=== PATIENT | female | born 1965 | race Caucasian/White ===

== ENCOUNTER 2017-10-25 14:18 | Emergency (ER) | payer MEDICARE, MEDICAID ==
[2017-10-25] MEDS ORDERED: Dexamethasone 4 mg/ml Vial ONE (16:30)
[2017-10-25] MEDS ORDERED: Albuterol Sulfate 2.5 mg/0.5 ml Neb ONE (16:33)
[2017-10-25] MEDS ORDERED: Albuterol Sulfate 2.5 mg/3 ml Neb ONE (16:34)
== END 2017-10-25 16:57 | disposition home or self-care (01) ==
LOC: ERS 14:18
DX: J20.9 Acute bronchitis, unspecified (principal); M41.9 Scoliosis, unspecified; Z79.899 Other long term (current) drug therapy
CPT/HCPCS: 94640; J1100; J7611

== ENCOUNTER 2018-04-02 16:01 | Emergency (ER) | payer MEDICARE, MEDICAID ==
[2018-04-02 16:38] LABS: Bilirubin Negative (Negative); Blood, Urine Moderate (Negative); Clarity CLEAR (Clear); Glucose, Urine (Dipstick) Negative (Negative); Leukocyte Small (Negative); Nitrite Negative (Negative); Protein, Urine (Dipstick) Negative (Neg-Trace); Specific Gravity, Urine 1.012 (1.002-1.036)
[2018-04-02 16:40] LABS: Bacteria/HPF Rare-Few HPF (None Seen); Hyaline Casts/LPF 0-3 HYALINE CAST LPF (0-3 Hyaline); Pathc Cast-AUWi Flag 0.14 (0-2.49); Squamous Epithelial None Seen HPF (0-3); WBC/HPF 21-50 HPF (0-3)
[2018-04-02] MEDS ORDERED: Ketorolac Tromethamine 60 MG/2 ML VIAL ONE (17:02)
[2018-04-04 21:54] LABS: Chlamydia by PCR DETECTED (NotDetected); GC by PCR Not Detected (NotDetected)
== END 2018-04-02 17:46 | disposition home or self-care (01) ==
LOC: ERS 16:01
DX: N39.0 Urinary tract infection, site not specified (principal); I10 Essential (primary) hypertension; D49.6 Neoplasm of unspecified behavior of brain; D49.2 Neoplasm of unspecified behavior of bone, soft tissue, and skin; M41.9 Scoliosis, unspecified
CPT/HCPCS: 81003; 81015; 87077; 87086; 87186; 87480; 87491; 87510; 87591; 87660; 93005; 96372; J1885

== ENCOUNTER 2018-09-20 08:18 | Emergency (ER) | payer MEDICARE, MEDICAID ==
--- NOTE | 2018-09-20 09:03 | RAD ---
LEFT ELBOW FOUR VIEWS: History: Left elbow pain. Prior surgery. Comparison: 07-23-14 FINDINGS: Extensive internal orthopedic fixation of the distal humerus and the ulna is again demonstrated, blas lar to the 07-23-14 exam. No perihardware lucency is evident. No acute fracture or dislocation. No flu id distention joint capsule is apparent. IMPRESSION: Stable post-operative changes of the left elbow. No acute osseous abnormalities are demonstrated. POS: ANDREW
== END 2018-09-20 09:14 | disposition home or self-care (01) ==
LOC: ERS 08:18
DX: S46.912A Strain of unspecified muscle, fascia and tendon at shoulder and upper arm level, left arm, initial encounter (principal); I10 Essential (primary) hypertension; Z79.899 Other long term (current) drug therapy; X58.XXXA Exposure to other specified factors, initial encounter

== ENCOUNTER 2019-10-24 17:55 | Emergency (ER) | payer MEDICARE, MEDICAID ==
[2019-10-24] MEDS ORDERED: Ketorolac Tromethamine 30 MG/ML VIAL ONE (18:11)
[2019-10-24 18:31] LABS: Bilirubin Negative (Negative); Blood, Urine 1+ (Negative); Clarity Clear (Clear); Glucose, Urine (Dipstick) Normal (Negative); Leukocyte Negative Leu/uL (Negative); Nitrite Negative (Negative); Protein, Urine (Dipstick) 70 mg/dL (Neg-Trace); RBC/HPF 0-3 HPF (0-3); Urobilinogen Normal mg/dL (Less than 2)
[2019-10-24 18:35] LABS: #Eosinphils 0.1 thou/uL (0.0-0.7); #Lymphocytes 1.9 thou/uL (1.20-3.40); #Monocytes 0.4 thou/uL (0.11-0.59); #Neutrophils 3.6 thou/uL (1.40-6.50); %Basophils 0.3 % (0.0-1.0); %Eosinophils 2.5 % (0.0-10.0); %Lymphocytes 30.6 % (21.0-51.0); %Monocytes 6.7 % (0.0-10.0); %Neutrophils 59.9 % (42.0-75.0); Hemoglobin 12.3 g/dL (12.0-16.0); Mean Corpuscular HGB CONC 33.6 g/dL (32.0-36.0); Mean Corpuscular Hemoglobin 29.9 pg (27.0-31.0); Mean Corpuscular Volume 88.9 fL (78.0-98.0); Platelet Count 224 thou/uL (130-400); RBC Distribution Width 12.7 % (11.5-14.5); Red Blood Cell (RBC) Count 4.12 mill/uL (4.20-5.40); White Blood Cell (WBC) Count 6.1 thou/uL (4.8-10.8)
[2019-10-24 18:36] LABS: Bacteria/HPF 1+ HPF (None Seen)
[2019-10-24 18:58] LABS: ALT (SGPT) 15 U/L (8-55); AST (SGOT) 27 U/L (5-34); Albumin 3.8 g/dL (3.5-5.0); Alkaline Phosphatase 92 U/L (40-110); Anion Gap 14 mmol/L (10-20); BUN (Urea Nitrogen) 16 mg/dL (9.8-20.1); Bilirubin, Total 0.3 mg/dL (0.2-1.2); Calc. Creatinine Clearance 0 mL/min (70-130); Calcium 8.8 mg/dL (7.8-10.44); Carbon Dioxide 24 mmol/L (22-29); Chloride 111 mmol/L (98-107); Estimated GFR-MDRD 71; Globulin 3.4 g/dL (2.4-3.5); Glucose 102 mg/dL (70-105); Potassium 4.5 mmol/L (3.5-5.1); Protein, Total 7.2 g/dL (6.0-8.3); Sodium 144 mmol/L (136-145)
--- NOTE | 2019-10-24 19:17 | CT ---
CT OF ABDOMEN AND PELVIS PERFORMED WITHOUT CONTRAST ENHANCEMENT: 10/24/19 HISTORY: Left flank pain. The lung bases are clear. The liver, spleen, and pancreas regions appear unremarkable. The gallbladder has been removed. Right and left adrenal glands and right and left kidneys are normal in size. Punctate nonobstructing lower pole renal calculus is seen. No ureteral calculi are seen. No bladder calculus noted. There ar e phleboliths within the pelvis but no definite distal ureteral calculi. There is no significant per iaortic or mesenteric adenopathy. There are slightly numerous aortocaval nodes but these are not sign ificantly enlarged. CT OF PELVIS PERFORMED WITHOUT CONTRAST ENHANCEMENT: No adenopathy or mass. No free fluid. The appendix is difficult to definitely visualize but there is no evidence for appendicitis. No inflammatory process within the pelvis. No evidence of any diverticu lar disease. IMPRESSION: Punctate nonobstructing lower pole left renal calculus. POS: GAVIN
== END 2019-10-24 20:26 | disposition home or self-care (01) ==
LOC: ERS 17:55
DX: R10.9 Unspecified abdominal pain (principal)
CPT/HCPCS: 36415; 74176; 80053; 81003; 81015; 85025; 94760; 96361; 96374; J1885

== ENCOUNTER 2019-12-18 07:48 | Emergency (ER) | payer MEDICARE, MEDICAID ==
[2019-12-18] MEDS ORDERED: Ibuprofen 200 MG TAB ONE (09:44)
[2019-12-18] MEDS ORDERED: HYDROcodone/Acetaminophen 10/325 mg Tablet ONE (09:59)
== END 2019-12-18 09:49 | disposition home or self-care (01) ==
LOC: ERS 07:48
DX: K08.89 Other specified disorders of teeth and supporting structures (principal); I10 Essential (primary) hypertension
CPT/HCPCS: 99282

== ENCOUNTER 2020-01-11 14:36 | Outpatient (CLI) | payer MEDICARE, OTHER ==
--- NOTE | 2020-01-11 16:33 | MRI ---
MRI BRAIN NONCONTRAST: DATE: 01/11/2020 HISTORY: 54-year-old female with seizure and headache. Follow-up brain lesion. COMPARISON: 07/08/2016 and 11/26/2015. FINDINGS: Again noted located in the right parietal deep white matter, a patchy moderate sized T2 and FLAIR hyp erintense signal abnormality with irregular margins measuring approximately 3.4 x 2.4 cm. It does not enhance, and has not significant changed. Ventricles are normal in size and configuration. There are a few tiny scattered tiny focal bifrontal deep white matter lesions that have occurred since the prior studies, consistent with minimal chronic ischemic white matter changes due to microvascular atherosclerosis. There are no new suspicious confluent cerebral lesions. No evidence of recent or remote intra-axial hemorrhage. No convincing evidence of mesial temporal sclerosis. No mass effect, m idline shift, or extra-axial fluid collection. No restricted diffusion. Hypoplastic left transverse dural venous sinus. No evidence of dural venous sinus thrombosis. IMPRESSION: Moderate-sized right cerebral parietal deep white matter nonenhancing lesion is unchanged. 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
== END 2020-01-11 14:37 | disposition home or self-care (01) ==
LOC: SCSMRI 14:36
PROVIDERS: ATTEND Psychiatry & Neurology Neurology
DX: R56.9 Unspecified convulsions (principal); R51 Headache; G93.89 Other specified disorders of brain
CPT/HCPCS: 70553